=== PATIENT | female | born 1945 | race Caucasian/White ===

== ENCOUNTER 2018-10-21 09:58 | Inpatient (IN) ==
--- NOTE | 2018-10-12 10:04 | Anesthesiology Consultation ---
Date of Service October 12, 2018 Assessment & Plan (1) Encounter for pre-operative examination: Chart Review Chart Review: Acceptable Risk for Surgery and Patient NOT seen in Pre Admission Testing History Surgery Operation Date: 10/20/18 17:00 Proposed Procedures p Navigational Bronchoscopy with ICG Marking - Clinton Arnold MD, FACS s Right Robotic Video Assisted Thoracoscopy with Right Middle Lobe Wedge Resection, Right Possible Middle Lobectomy with Mediastinal Lymphadenectomy - Clinton Arnold MD, FACS Height/Weight Height: 4 ft 11.5 in Weight: 70.307 kg Allergies Allergy/AdvReac Type Severity Reaction Status Date / Time codeine Allergy Unknown Verified 10/12/18 08:00 Sulfa (Sulfonamide Allergy Unknown Verified 10/12/18 08:00 Antibiotics) Medications Home Medications Medication Instructions Recorded Confirmed Last Taken Mayra's wort 300 mg PO DAILY 10/12/18 10/12/18 Unknown amoxicillin 500 mg PO UD PRN 10/12/18 10/12/18 Unknown aspirin 81 mg PO QAM 10/12/18 10/12/18 Unknown cyanocobalamin (vitamin B-12) 500 mcg PO QAM 10/12/18 10/12/18 Unknown [Vitamin B-12] lisinopril 1 tab PO QAM 10/12/18 10/12/18 Unknown multivitamin 1 tab PO QAM 10/12/18 10/12/18 Unknown rosuvastatin 10 mg PO HS 10/12/18 10/12/18 Unknown vitamin E 1 cap PO DAILY 10/12/18 10/12/18 Unknown Past Medical History Medical History Diverticular disease Hyperlipidemia Hypertension Osteoarthritis Pulmonary nodule Past Family History Family History Sister Family history of diabetes mellitus Mother Family history of diabetes mellitus Past Surgical History Surgical History History of anesthesia reaction AGGRESSIVE BEHAVIOR WITH ANESTHESIA EMERGENCE History of bilateral breast reduction surgery History of bilateral carpal tunnel release History of cholecystectomy History of colonoscopy History of tonsillectomy Hx of bilateral hip replacements Social History Smoking Status: Never smoker Do You Dip or Chew Tobacco: No Hx Alcohol Use: Yes Alcohol type: beer and wine alcohol intake frequency: a few times a month Hx Substance Use: No substance use type: does not use Testing Electrocardiogram Date: 10/07/18 NSR at 84bpm. Minimal voltage criteria for LVH, may be normal variant. Other Testing CT thorax: 09/08/18: RML nodule 14mm max diameter. Lung carcinoma and metastatic lesion have to be excluded. Biopsy recommended. Laboratory Results 10/07/18 WBC 8.7 H/H 14.5/43.5 PLATELETS 270 SODIUM 141 POTASSIUM 4.1 CHLORIDE 107 CO2 28 BUN 15 CREATININE 0.9 GLUCOSE 92
[~2018-10-21 09:58] MED LIST: LR 15ML/HR IV SCH
[2018-10-21] MEDS ORDERED: ePHEDrine sulfate 50 MG/ML SYR ONE (11:39)
[2018-10-21] MEDS ORDERED: PROPOFOL IV EMULSION 10 MG/ML 20 ML VIAL IV ONE (11:39)
[2018-10-21] MEDS ORDERED: GLYCOPYRROLATE 0.2 MG/ML VIAL ONE (11:39)
[2018-10-21] MEDS ORDERED: NEOSTIGMINE METHYLSULFATE 5 MG/5 ML SYR ONE (11:39)
[2018-10-21] MEDS ORDERED: PHENYLEPHRINE 100MCG/ML 5ML SYR ONE (11:39)
[2018-10-21] MEDS ORDERED: CEFAZOLIN 250 MG/ML 1 GM VIAL ONE (11:39)
[2018-10-21] MEDS ORDERED: ONDANSETRON INJ 2 MG/ML 2 ML VIAL ONE (11:39)
[2018-10-21] MEDS ORDERED: DEXAMETHASONE SOD INJ 4 MG/ML VIAL ONE (11:39)
[2018-10-21] MEDS ORDERED: CISATRACURIUM BESYLATE IV SOLN 2 MG/ML 10 ML VIAL IV ONE (11:39)
[2018-10-21] MEDS ORDERED: LIDOCAINE HCL 2% 2 ML VIAL/AMP(20MG/ML) INFIL ONE (11:39)
[2018-10-21] MEDS ORDERED: fentaNYL citrate 100 MCG/2 ML VIAL ONE (11:39)
[2018-10-21] MEDS ORDERED: MIDAZOLAM HCL 1 MG/ML 2ML VIAL ONE (11:39)
[2018-10-21] MEDS ORDERED: LARYING-O-JET KIT (LTA) ONE (11:39)
--- NOTE | 2018-10-21 11:55 | History & Physical Bridge Note ---
Date of Service October 21, 2018 History & Physical Bridge Note I have examined the patient, reviewed the History & Physical and in the interval since the performance of the History & Physical I have noted the following changes of clinical significance: no changes noted
[2018-10-21] MEDS ORDERED: BUPIVACAINE 0.5 % 5 MG/1 ML MPF 30ML VIAL ONE (12:13)
[2018-10-21] MEDS ORDERED: BUPIVACAINE LIPOSOME 1.3% 266 MG/20 ML VIAL ONE (12:14)
[2018-10-21] MEDS ORDERED: SODIUM CHLORIDE 0.9% PF 50 ML VIAL ONE (12:14)
[2018-10-21] MEDS ORDERED: CEFAZOLIN 2000MG 2,000 MG/15 ML SYR IV ONE (13:00)
[2018-10-21] MEDS ORDERED: INDOCYANINE GREEN 25 MG/10 ML INJ ONE (13:01)
--- NOTE | 2018-10-21 13:18 | Fluoroscopy Report ---
FL chest 1V frontal CLINICAL HISTORY: NAVIGATIONAL BRONCHOSCOPY WITH IGG MARKING COMPARISON STUDY: Chest CT 10/15/2018. FLUOROSCOPY TIME: 20 seconds. FINDINGS: Single fluoroscopic spot images demonstrate a bronchoscope within the right lung base. IMPRESSION: Fluoroscopy provided for right middle lobe bronchoscopy. Electronically signed by: Karan Bob M.D. 10/21/2018 1:17 PM
[2018-10-21] MEDS ORDERED: ONDANSETRON INJ 2 MG/ML 2 ML VIAL IV PRN ×2 (14:52→16:13)
[2018-10-21] MEDS ORDERED: ATROPINE SULFATE 0.1 MG/ML 10ML SYR IV PRN (14:52)
[2018-10-21] MEDS ORDERED: PROMETHAZINE HCL 12.5 MG in SODIUM CHLORIDE 0.9% 50 ML IV PRN (14:52)
[2018-10-21] MEDS ORDERED: LABETALOL HCL IV 5 MG/ML 20ML IV PRN (14:52)
[2018-10-21] MEDS ORDERED: ePHEDrine sulfate 50 MG/ML AMP IV PRN (14:52)
[2018-10-21] MEDS ORDERED: HYDROmorphone INJ 1 MG/ML SYRINGE IV PRN (14:52)
[2018-10-21] MEDS ORDERED: FLUMAZENIL 0.1 MG/1 ML 10 ML VIAL IV PRN (14:52)
[2018-10-21] MEDS ORDERED: NALOXONE HCL 0.4 MG/1 ML VIAL/CARP IV PRN (14:52)
--- NOTE | 2018-10-21 14:56 | Post Operative Brief Note ---
Immediate Post Op Note v1 Date of Surgery October 21, 2018 Pre & Post Diagnosis Operation Date: 10/21/18 11:30 Pre-Op Diagnosis: Right Lung Nodule Post-Op Diagnosis: probable hamartoma Procedure Operation Date: 10/21/18 11:30 Actual Procedures p Navigational Bronchoscopy with ICG Marking;(Not Applicable) - Clinton Arnold MD, FACS s Robotic Right Video-Assisted Thoracoscopy with Right Middle Lobe Wedge Resection with Mediastinal Lymphadenectomy(Right) - Clinton Arnold MD, FACS Surgeon Clinton Arnold MD, FACS Wire Threader Boris JULIAN Estimated Blood Loss 10 Findings Consistent with Post-Op Diagnosis Drains Chest Tube and Wayne Catheter
[2018-10-21] MEDS ORDERED: METOCLOPRAMIDE HCL INJ 5 MG/ML 2 ML VIAL IV ONE (15:10)
--- NOTE | 2018-10-21 15:31 | Anesthesiology Progress Note ---
Date of Service October 21, 2018 Anesthesia Post Procedure Vital Signs Vital Signs: Temp Pulse Resp BP Pulse Ox 10/21/18 10:30 36.7 C 78 18 185/73 H 95 Pain Intensity Left Knee: Pain Intensity: 9 Transfer of Care Handoff Completed per policy Notes Mental Status: alert / awake / arousable Patient Amnestic to Procedure: Yes Nausea / Vomiting: adequately controlled Pain: adequately controlled Airway Patency, RR, SpO2: stable & adequate BP & HR: stable & adequate Hydration State: stable & adequate Anesthetic Complications: no major complications apparent
--- NOTE | 2018-10-21 15:32 | XRay Report ---
XR chest 1V portable CLINICAL HISTORY: right lung wedge resection COMPARISON STUDY: 09/01/2018 FINDINGS: The cardiac and mediastinal contours remain stable. A right-sided chest tube is visualized. There is a trace right apical pneumothorax. There are bilateral lower lung zone atelectatic changes. [ IMPRESSION: 1. Postsurgical changes with bilateral lower lung zone atelectasis. Trace right apical pneumothorax. Electronically signed by: Ayan Montes M.D. 10/21/2018 3:31 PM
[2018-10-21] MEDS ORDERED: HYDROmorphone INJ 0.5 MG/0.5 ML SYR IV PRN (16:13)
[2018-10-21] MEDS ORDERED: KETOROLAC TROMETHAMINE 15 MG/ML VIAL IV PRN (16:13)
[2018-10-21 16:55] LABS: Hematocrit (blood only) 40.7 % (37-47); Hemoglobin 14.5 g/dL (12.0-16.0); Mean Corpuscular Hgb Conc 35.6 g/dL (32-36); Mean Platelet Volume 9.2 fL (7.4-10.4); Platelet Count 207 K/uL (130-400); RDW Coefficient of Variation 12.9 % (11.5-14.5); RDW Standard Deviation 40.9 fL (36.4-46.3); Red Blood Count 4.73 M/uL (4.2-5.4); White Blood Count 9.94 K/uL (4.8-10.8)
[2018-10-21] MEDS: ACETAMINOPHEN 1,000 MG/100 ML VIAL IV SCH (17:07)
[2018-10-21 17:08] LABS: Prothrombin Time 10.6 Seconds (9.0-12.0)
[2018-10-21] MEDS: METOCLOPRAMIDE HCL INJ 5 MG/ML 2 ML VIAL IV SCH (17:10)
[2018-10-21 17:13] LABS: Creatinine Clr Calc Pharmacy 57.7 ml/min; Est GFR (African American) 87.3; Est GFR (Non-African American) 75.3
[2018-10-21] MEDS: D5W AND 1/2NSS 1,000 ML IV SCH (18:26)
[2018-10-21] MEDS: DOCUSATE SODIUM 100 MG CAP PO SCH (20:19)
[2018-10-21] MEDS ORDERED: ROSUVASTATIN CALCIUM 10 MG TAB PO SCH (21:00)
--- NOTE | 2018-10-21 23:09 | Operative Report ---
DATE OF OPERATION: 10/21/2018 PREOPERATIVE DIAGNOSIS: Right middle lobe mass. POSTOPERATIVE DIAGNOSIS: Hamartoma, right middle lobe. PROCEDURE: 1. Electromagnetic navigational bronchoscopy with marking of right middle lobe mass with indocyanine green. 2. Robot-assisted right thoracoscopy with wedge resection of mass using indocyanine green localization with fluorescence. 3. Mediastinal lymph node biopsies. SURGEON: Clinton Arnold MD. ENGINEERING TECH: ELIEL Julio (Mr. Skinner was present for the entire case and was at patient's bedside while I was at the console, and closed the case at the end). INDICATION FOR PROCEDURE AND FINDINGS: Precious Barclay in a 73-year-old who has a mass which has smooth rounded edges, in the middle lobe, however, she is concerned about it. I explained that PET scan showed really no hypermetabolic activity and that we could probably safely observe this, however, she did not want this. She is quite anxious about having this in place and asked that it be removed. On 10/21/2018, the patient was brought to the operating room and underwent electromagnetic navigational bronchoscopy and we marked this area with indocyanine green. I then turned the patient in the left lateral decubitus position and the right chest was entered and upon entering, we could see where to put our ports and placed 4 separate ports with one being an assistance port and three being robotic. We wedged this mass out, it appeared to be a hamartoma. I biopsied several lymph nodes, she tolerated it well. DESCRIPTION OF PROCEDURE: The patient was brought to the operating room and laid in supine position. General anesthesia induced, endotracheal intubation was performed. After appropriate timeout had been called, the patient was placed in left lateral decubitus position, right chest prepped and draped in the usual sterile fashion. A 5-mm port was placed close to the mid axillary line 2 interspaces below the scapula in about the eighth interspace. It could be seen that we were indeed in the pleural cavity. Carbon dioxide was infused. I then placed an 8-mm port anteriorly and an 8-mm port posteriorly and an assistance port a bit anterior which was much lower. Upon entering the chest, we used fluorescence and found the mass quite quickly. This was wedged out and I could palpate this. Frozen section showed it to be consistent with a probable hamartoma. For this reason, we stopped. While waiting for the frozen section to come back, I dissected out level 2, 4, 7, 8, and 10. The frozen section came back as probable hamartoma. We stopped here. She tolerated it well. The patient was brought to the operating room and laid in supine position. General anesthesia was induced. Endotracheal intubation was performed with a single lumen tube. With the patient in supine position, after appropriate timeout had been called and antibiotics given, a fiberoptic bronchoscope was placed through the adapter into the endotracheal tube. I saw no endobronchial lesions. We then registered the airways and after this was accepted, I was easily able to get out to the middle lobe nodule. We could also see it on fluoroscopy, so I injected this with 1 mL of indocyanine green and 1 mL of air. We then removed the fiberoptic bronchoscope and the navigational probe. The patient was then switched over to a double lumen tube and was placed in a left lateral decubitus position. A camera port was placed after injecting all 4 port sites with 266 mg of Exparel in 20 mL solution that was mixed with 30 mL of 0.5% bupivacaine and 250 mL of normal saline. Skin wheals and deeper injections were made at every port site and upon placing the camera port and the camera, we could see that there were no adhesions and there were good fissures. An 8-mm port was placed anteriorly and posteriorly at about the same interspace. An assistance port was placed anteriorly above the costal margin and above the diaphragm. The robot was then docked. We could see quite well and using the fluorescence, the indocyanine green was quite obvious in a localized area. We grasped this area of the middle lobe and fired Endo-FARHAT stapler several times to remove a portion of this. I could palpate this nodule. It appeared grossly we had all of it. This was then sent off for frozen section. While waiting for that, we took down the inferior pulmonary ligament, but I did not see a level 9 node. We did take out level 8 and level 7, although I did not remove all of them. I removed a level 10 and then went up and removed a level 2 and 4 packet, but then the frozen section came back as representing a probable hamartoma and I discussed this with Dr. Humphrey Pitts. For this reason, we elected to proceed with stopping. We did do an Exparel block with the solution we had previously mixed by injecting from the 2nd through 11th ribs intrathoracically. A 24-Czech chest tube was placed in the anterior port and directed towards the apex. Sutured in place with heavy silk suture. We had no air leak. It was sutured in place with heavy silk suture. We did use a single 0 Vicryl to close the muscle layers with fascia, the assistance port, as well as the camera port. A 4-0 Monocryl was used in running subcuticular fashion to approximate the wound edges. She awakened without difficulty with essentially no blood loss and no air leak. I attest to the content of the Intraoperative Record and any orders documented therein. Any exception s are noted below.
[2018-10-22] MEDS: ACETAMINOPHEN 1,000 MG/100 ML VIAL IV SCH (01:29)
[2018-10-22] MEDS: METOCLOPRAMIDE HCL INJ 5 MG/ML 2 ML VIAL IV SCH ×2 (01:29→09:13)
[2018-10-22] MEDS: D5W AND 1/2NSS 1,000 ML IV SCH (03:19)
--- NOTE | 2018-10-22 07:45 | XRay Report ---
XR chest 1V portable CLINICAL HISTORY: 73 years-old Female presenting with right wedge resection. TECHNIQUE: Portable upright AP view of the chest was obtained. COMPARISON: . FINDINGS: Large bore right pleural drain remains positioned at the right midlung. Postsurgical changes of the r ight midlung. Cardiac silhouette mildly enlarged. Interstitial thickening suggested bilaterally, righ t greater than left. Minimal focal bandlike opacities in the right midlung likely postsurgical change . No large effusion or pneumothorax. Degenerative changes of the thoracic spine. Upper abdomen normal . IMPRESSION: 1. Postsurgical changes of the right lung. 2. No pneumothorax. Right pleural drain remains in place. Electronically signed by: Humphrey Larios M.D. 10/22/2018 7:43 AM
[2018-10-22] MEDS ORDERED: ACETAMINOPHEN 325 MG TAB PO SCH (08:00)
--- NOTE | 2018-10-22 08:17 | XRay Report ---
XR chest 1V portable CLINICAL HISTORY: 73 years-old Female presenting with tube removal. TECHNIQUE: Portable upright AP view of the chest was obtained. COMPARISON: 10/22/2018 at 7:15 AM. FINDINGS: Right pleural drain has been removed. Atherosclerosis of the aortic arch. Cardiac silhouette mildly e nlarged. Postsurgical changes of the right midlung. Tiny right apical pneumothorax now present. Minim al bandlike opacities at the lung bases similar to prior. No new focal opacity. No large effusion. De generative changes of the thoracic spine. Upper abdomen normal. IMPRESSION: 1. Tiny right apical pneumothorax status post removal of right pleural drain. Attention on follow-up . 2. Possible changes of the right midlung. 3. Minimal bibasilar atelectasis. 4. Mild cardiomegaly. Electronically signed by: Humphrey Larios M.D. 10/22/2018 8:16 AM
[2018-10-22] MEDS ORDERED: ENOXAPARIN INJ 40 MG/0.4 ML SYR SQ SCH (09:00)
[2018-10-22] MEDS ORDERED: LISINOPRIL 20 MG TAB PO SCH (09:00)
[2018-10-22] MEDS ORDERED: CYANOCOBALAMIN 500 MCG TABLET (VITAMIN B-12) PO SCH (09:00)
[2018-10-22] MEDS ORDERED: MULTIVITAMIN TAB PO SCH (09:00)
[2018-10-22] MEDS ORDERED: ASPIRIN 81 MG ECTAB PO SCH (09:00)
[2018-10-22] MEDS: DOCUSATE SODIUM 100 MG CAP PO SCH (09:12)
--- NOTE | 2018-10-22 09:43 | Anesthesiology Progress Note ---
Date of Service October 22, 2018 Anesthesia Post Procedure Vital Signs Vital Signs: Temp Pulse Pulse Resp BP BP Pulse Ox 10/22/18 07:45 36.8 C 80 16 160/81 H 95 10/22/18 06:58 36.9 C 85 16 155/80 H 95 10/22/18 05:16 36.6 C 81 16 134/71 96 10/22/18 03:34 84 95 10/22/18 03:05 36.6 C 86 16 142/76 H 91 10/22/18 01:00 36.9 C 87 16 153/74 H 91 10/21/18 23:25 36.6 C 87 16 149/75 H 94 10/21/18 22:00 36.8 C 84 16 147/73 H 95 10/21/18 21:05 10/21/18 21:00 36.8 C 88 16 145/82 H 96 10/21/18 20:00 36.6 C 88 16 146/64 H 96 10/21/18 19:09 36.5 C 79 17 134/79 94 10/21/18 18:01 36.3 C L 69 17 135/63 96 10/21/18 17:05 36.3 C L 67 16 132/76 95 10/21/18 16:30 36.3 C L 64 17 136/62 96 10/21/18 16:00 36.6 C 63 16 126/77 97 10/21/18 15:45 60 15 131/64 99 10/21/18 15:35 61 15 122/64 99 10/21/18 15:25 62 16 122/64 100 10/21/18 15:15 36 C L 68 16 157/71 H 100 10/21/18 10:30 36.7 C 78 18 185/73 H 95 Pulse Ox 10/22/18 07:45 10/22/18 06:58 10/22/18 05:16 10/22/18 03:34 10/22/18 03:05 10/22/18 01:00 10/21/18 23:25 10/21/18 22:00 10/21/18 21:05 96 10/21/18 21:00 10/21/18 20:00 10/21/18 19:09 94 10/21/18 18:01 96 10/21/18 17:05 95 10/21/18 16:30 10/21/18 16:00 97 10/21/18 15:45 10/21/18 15:35 10/21/18 15:25 10/21/18 15:15 10/21/18 10:30 Pain Intensity Left Knee: Pain Intensity: 9 Notes Mental Status: alert / awake / arousable Patient Amnestic to Procedure: Yes Nausea / Vomiting: adequately controlled Pain: adequately controlled and see Notes below (pt to have knee replacement once this VAT case was completed) Airway Patency, RR, SpO2: stable & adequate BP & HR: stable & adequate Hydration State: stable & adequate Anesthetic Complications: no major complications apparent
--- NOTE | 2018-10-25 11:00 | Discharge Summary ---
DISCHARGE DIAGNOSIS: Hamartoma, right middle lobe. HOSPITAL COURSE: The patient is a 73-year-old female who has a mass in her right middle lobe. The mass was smooth, and we had a long discussion in the office and discussed this with the patient and her at great length. Quite frankly, the patient could either had been followed with serial CT scans; however, she was quite anxious about it, and I told her the only way I could definitively tell her that this was not a malignancy was to remove it. On 10/21/2018, the patient underwent an uncomplicated navigational bronchoscopy and marking of this intrapulmonary mass with indocyanine green dye. I then used the robotic scope, and using fluorescence, we easily found this mass. This would wedge out, and the frozen section showed this to be a probable hamartoma. While waiting, I dissected out multiple lymph nodes which were all negative for malignancy. She tolerated it quite well. She had a stable night and the following day had her chest tube removed, and she was discharged. She tolerated it quite well. I only used 4 incisions. They were small and had very little in the way of wound care. I will see her back in the office in a week to go over final pathology. KELY
== END 2018-10-22 10:39 | disposition home or self-care (01) | DRG 830 ==
LOC: ASU 09:58 → 3N 15:00